=== PATIENT | female | born 1935 | race Caucasian/White ===

== ENCOUNTER 2016-09-15 16:21 | Emergency (ER) | payer MEDICARE, OTHER ==
[~2016-09-15] VITALS: Wt 100.0 kg
[2016-09-15] MEDS ORDERED: MECLIZINE 12.5 MG TAB PO ONE (19:30)
[2016-09-15] MEDS ORDERED: DIAZEPAM 5 MG/ML SYG IV ONE (19:30)
--- NOTE | 2016-09-15 20:28 | RADRPT ---
PROCEDURE: CT HEAD WITHOUT CONTRAST: CLINICAL INDICATION: 81 years age, female, headache . COMPARISON: None TECHNIQUE: CT of the head was performed without IV contrast. Dose information: The estimated radiation dose (CTDIvol mGy) for each series in this exam is 44 . The estimated cumulative dose (DLP mGy-cm) is 720 . FINDINGS: Parenchyma: No acute hemorrhage, infarction, or mass. Mild diffuse cerebral tissue loss. Intracrani al atherosclerosis. Ventricles and extra-axial spaces: Prominence of the ventricles proportionate to the sulci in keepin g with cerebral tissue loss. Subcentimeter calcification overlying the right transverse sinus may re present a calcified arachnoid granulation. Visualized paranasal sinuses: Clear. Mastoid air cells: Clear. Bones: No focal abnormality. Additional comment: None. IMPRESSION: 1. No acute hemorrhage, infarction or mass. 2. <Intracranial atherosclerosis. RPTAT: HCTS Physician Zahraa Date Time Electronically viewed and signed by Juan Fulton Physician on 09/15/2016 20:28 /
[2016-09-15] MEDS ORDERED: OMEG1CAP2 PO (21:21)
[2016-09-15] MEDS ORDERED: CARV6.2579 PO (21:21)
[2016-09-15] MEDS ORDERED: PIOG30TA26 PO (21:22)
[2016-09-15] MEDS ORDERED: FENO160T13 PO (21:22)
[2016-09-15] MEDS ORDERED: ALLO100T PO (21:22)
[2016-09-15] MEDS ORDERED: CLOT30CR24 TOP (21:23)
[2016-09-15] MEDS ORDERED: ERGO500037 PO (21:24)
[2016-09-15] MEDS ORDERED: ROSU40TA35 PO (21:24)
[2016-09-15] MEDS ORDERED: ADV25050 INHALATION (21:26)
[2016-09-15] MEDS ORDERED: SITA1TAB PO (21:26)
[2016-09-15] MEDS ORDERED: LINA290C PO (21:27)
[2016-09-15] MEDS ORDERED: TOLT4CAP13 PO (21:27)
[2016-09-15] MEDS ORDERED: LIPA1CAP45 PO (21:28)
[2016-09-15] MEDS ORDERED: ASPI-664 PO (21:28)
[2016-09-15] MEDS ORDERED: KETO120S2 TOP (21:28)
[2016-09-15] MEDS ORDERED: CYCL1DRO BOTH EYES (21:31)
[2016-09-15] MEDS ORDERED: LIDO700A45 TP (21:31)
[2016-09-15] MEDS ORDERED: ZOLP5TAB7 PO (21:32)
[2016-09-15] MEDS ORDERED: OLOP2.5D5 OP (21:32)
[2016-09-15] MEDS ORDERED: FURO20TA3 PO (21:33)
[2016-09-15] MEDS ORDERED: LISI20TA11 PO (21:33)
[2016-09-15] MEDS ORDERED: POTA8CAP PO (21:34)
[2016-09-15] MEDS ORDERED: CELE200C PO (21:34)
[2016-09-15] MEDS ORDERED: AMLO5TAB4 PO (21:35)
[2016-09-15] MEDS ORDERED: DULO60CA59 PO (21:35)
[2016-09-15] MEDS ORDERED: ESOM40CA PO (21:35)
[2016-09-15] MEDS ORDERED: DIAZ-90 PO (21:37)
[2016-09-15] MEDS ORDERED: MECL12.574 PO (21:37)
--- NOTE | 2016-09-15 21:40 | ERD ---
ER Documentation Chief Complaint Date/Time DATE: 09/15/16 TIME: 21:38 Chief Complaint feels dizzy HPI This 81-year-old female who is complaining of vertigo for the past 10 days. The patient says she is having off-and-on vertigo that some days are worse than others. The patient says today has been the worst they have all. She says if she moves her head she will get a sudden spinning sensation. If she remains still the spinning will stop. No nausea vomiting diarrhea no focal neurological complaints such as headache numbness weakness visual change speech change. No palpitations no ringing or loss of hearing in the years. ROS All systems reviewed and are negative except as per history of present illness. Medications Home Meds Active Scripts Diazepam* (Valium*) 5 Mg Tablet, 5 MG PO Q8 for vertigo, #10 TAB Prov:MARCO ANTONIO CHEN DO 09/15/16 Meclizine Hcl* (Antivert*) 12.5 Mg Tab, 25 MG PO Q6H Y for DIZZINESS, #20 TAB Prov:MARCO ANTONIO CHEN DO 09/15/16 Reported Medications Esomeprazole Mag Trihydrate (Nexium) 40 Mg Capsule.dr, 40 MG PO DAILY, #30 CAP 09/15/16 Amlodipine Besylate* (Norvasc*) 5 Mg Tablet, 5 MG PO DAILY, TAB 09/15/16 Duloxetine Hcl* (Duloxetine Hcl*) 60 Mg Capsule.dr, 60 MG PO DAILY, #30 CAP 09/15/16 Potassium Chloride* (Potassium Chloride*) 8 Meq Capsule.er, 8 MEQ PO DAILY, CAP 09/15/16 Celecoxib* (Celebrex*) 200 Mg Capsule, 200 MG PO DAILY, CAP 09/15/16 Furosemide* (Furosemide*) 20 Mg Tablet, 20 MG PO BID, #30 TAB 09/15/16 Lisinopril* (Lisinopril*) 20 Mg Tablet, 20 MG PO BID, #30 TAB 09/15/16 Zolpidem Tartrate* (Zolpidem Tartrate*) 5 Mg Tablet, 5 MG PO QHS Y for INSOMNIA , #30 TAB 09/15/16 Olopatadine HCl (Pazeo) 2.5 Ml Drops, 2.5 ML OP DAILY, BOTTLE 09/15/16 Cyclosporine (RESTASIS) 1 Each Droperette, 1 DROP BOTH EYES Q12, #1 BOX 09/15/16 Lidocaine (Lidocaine) 1 Each Adh..patch, 1 EACH TP DAILY 09/15/16 Aspirin* (Aspirin* EC) 81 Mg Tablet.dr, 81 MG PO DAILY, TAB 09/15/16 Ketoconazole* (Ketoconazole*) 2% - 120 Ml Shampoo, 1 APPLIC TOP DAILY, EA WASH HAIR/SCALP AND RINSE OFF 09/15/16 Usumie-Vymmfdme-Vzltpva* (Jamar AGUILAR* 36,000) 36,000 L-114,000-180,000 Unit Capsule.dr, 1 CAP PO WITH MEALS, CAP 09/15/16 Tolterodine Tartrate* (Tolterodine Tartrate* ER) 4 Mg Cap.er.24h, 4 MG PO DAILY , #30 CAP 09/15/16 Linaclotide (LINZESS) 290 Mcg Capsule, 290 MCG PO DAILY, #30 CAP 09/15/16 Salmeterol Xinaf/Fluticasone* (Advair*) 250-50 Diskus Inhaler, 1 INH INHALATION BID, #1 INHALER 09/15/16 Sitagliptin Phos/Metformin HCl (Janumet 50-500 mg Tablet) 1 Each Tablet, 1 EACH PO BID, TAB 09/15/16 Rosuvastatin Calcium* (Crestor*) 40 Mg Tablet, 40 MG PO QHS, #30 TAB 09/15/16 Ergocalciferol (Vitamin D2) (VITAMIN D2) 50,000 Unit Capsule, 93809 UNIT PO Q7D , CAP 09/15/16 Clotrimazole* (Clotrimazole* AF) 1% - 30 Gm Cream.gm., 1 APPLIC TOP BID, TUB 09/15/16 Allopurinol* (Allopurinol*) 100 Mg Tablet, 100 MG PO DAILY, TAB 09/15/16 Pioglitazone Hcl* (Pioglitazone Hcl*) 30 Mg Tablet, 30 MG PO DAILY, TAB 09/15/16 Fenofibrate, Micronized* (Fenofibrate*) 160 Mg Tablet, 160 MG PO DAILY, TAB 09/15/16 Carvedilol* (Carvedilol*) 6.25 Mg Tablet, 6.25 MG PO BID, #60 TAB 09/15/16 [place]-3 Acid Ethyl Esters (Lovaza) 1 Gm Capsule, 2 GM PO BID, CAP 09/15/16 Allergies Allergies: Coded Allergies: No Known Allergy (Unverified , 09/15/16) PMhx/Soc History of Surgery: No Anesthesia Reaction: No Hx Neurological Disorder: No Hx Respiratory Disorders: No Hx Cardiac Disorders: Yes (HTN) Hx Psychiatric Problems: No Hx Miscellaneous Medical Probl: Yes (DM, HYPERLIPIDEMIA) Hx Alcohol Use: No Hx Substance Use: No Hx Tobacco Use: No Smoking Status: Never smoker FmHx Family History: No coronary disease Physical Exam Vitals Vital Signs Date Time Temp Pulse Resp B/P Pulse Ox O2 Delivery O2 Flow Rate FiO2 09/15/16 20:58 88 18 144/96 100 Room Air 09/15/16 16:25 98.1 98 18 175/77 99 Physical Exam Const: Well-developed, well-nourished Head: Atraumatic, normocephalic Eyes: Normal Conjunctiva, PERRLA, EOMI, normal sclera, no nystagmus ENT: Normal External Ears, Nose and Mouth, moist mucus membranes. Neck: Full range of motion. No meningismus, no lymphadenopathy. Resp: Clear to auscultation bilaterally, no wheezing, rhonchi, rales Cardio: Regular rate and rhythm, no murmurs, S1 S2 present Abd: Soft, non tender x 4, non distended. Normal bowel sounds, no guarding or rebound, no pulsitile abdominal masses or bruits Skin: No petechiae or rashes, no ecchymosis , no maculopapular rash Back: No midline or flank tenderness Ext: No cyanosis, or edema, FROM x 4, normal inspection, neurovascularly intact x 4 Neur: Awake and alert, STR 5/5 x 4, sensation intact x 4, no focal findings, cerebellum intact, moderate to severe vertigo induced with movement of the head positive Hallpike to the left Psych: Normal Mood and Affect Results 24 hrs Current Medications Medications (Trade) Dose Ordered Sig/Fabian Route PRN Reason Start Time Stop Time Status Last Admin Dose Admin Meclizine HCl (Antivert) 25 mg ONCE ONCE PO 09/15/16 19:30 09/15/16 19:31 DC 09/15/16 19:42 Diazepam (Valium) 5 mg ONCE ONCE IV 09/15/16 19:30 09/15/16 19:31 DC 09/15/16 19:44 Procedures/MDM PROCEDURE: CT HEAD WITHOUT CONTRAST: CLINICAL INDICATION: 81 years age, female, headache . COMPARISON: None TECHNIQUE: CT of the head was performed without IV contrast. Dose information: The estimated radiation dose (CTDIvol mGy) for each series in this exam is 44 . The estimated cumulative dose (DLP mGy-cm) is 720 . FINDINGS: Parenchyma: No acute hemorrhage, infarction, or mass. Mild diffuse cerebral tissue loss. Intracranial atherosclerosis. Ventricles and extra-axial spaces: Prominence of the ventricles proportionate to the sulci in keeping with cerebral tissue loss. Subcentimeter calcification overlying the right transverse sinus may represent a calcified arachnoid granulation. Visualized paranasal sinuses: Clear. Mastoid air cells: Clear. Bones: No focal abnormality. Additional comment: None. IMPRESSION: 1. No acute hemorrhage, infarction or mass. 2. <Intracranial atherosclerosis. RPTAT: HCTS Physician Zahraa Date Time Electronically viewed and signed by Juan Fulton Physician on 09/15/2016 20: 28 CS/ CC: MARCO ANTONIO CHEN DO After Antivert and volume the patient feels better. Patient clearly has a peripheral vertigo pattern no evidence of stroke will discharge with Antivert and Valium Departure Diagnosis: Primary Impression: Vertigo Condition: Stable Patient Instructions: Vertigo, Unspecified MARCO ANTONIO CHEN DO Sep 15, 2016 21:40
[2016-09-15 21:53] VITALS: BP 155/78; PULSE 83; RESP 18
== END 2016-09-15 21:54 | disposition home or self-care (01) ==
LOC: E/R 16:21
DX: R42 Dizziness and giddiness (principal); I10 Essential (primary) hypertension; E11.9 Type 2 diabetes mellitus without complications; Z79.82 Long term (current) use of aspirin; Z79.84 Long term (current) use of oral hypoglycemic drugs
CPT/HCPCS: 70450; J3360; 96374